=== PATIENT | female | born 1965 | race Caucasian/White ===

== ENCOUNTER 2016-09-06 10:57 | Outpatient (CLI) | payer OTHER ==
[2016-09-06 12:03] LABS: ALT (SGPT) 25 U/L (0-55); AST (SGOT) 25 U/L (5-34); Albumin 4.4 g/dL (3.5-5.0); Alkaline Phosphatase 59 U/L (40-150); Anion Gap 11 mmol/L (10-20); BUN (Urea Nitrogen) 13 mg/dL (9.8-20.1); Bilirubin, Total 0.6 mg/dL (0.2-1.2); Calc. Creatinine Clearance 0 mL/min (70-130); Calcium 9.6 mg/dL (7.8-10.44); Carbon Dioxide 28 mmol/L (22-29); Cardiac Risk 3.7 (Less than 4.5); Chloride 105 mmol/L (98-107); Cholesterol 224 mg/dL (< 200 Desired); Estimated GFR-MDRD 76; Globulin 2.6 g/dL (2.4-3.5); Glucose 85 mg/dL (70-105); HDL Cholesterol 61 mg/dL (>60 Neg Risk); LDL Cholesterol, Calculated 131 mg/dL; Potassium 4.2 mmol/L (3.5-5.1); Sodium 140 mmol/L (136-145); Triglycerides 161 mg/dL (Less than 150)
[2016-09-06 12:15] LABS: #Basophils 0.1 thou/uL (0.0-0.2); #Eosinphils 0.6 thou/uL (0.0-0.7); #Lymphocytes 2.4 thou/uL (1.20-3.40); #Monocytes 0.6 thou/uL (0.11-0.59); #Neutrophils 6.7 thou/uL (1.40-6.50); %Basophils 0.8 % (0.0-1.0); %Eosinophils 5.7 % (0.0-10.0); %Lymphocytes 22.8 % (21.0-51.0); %Monocytes 6.1 % (0.0-10.0); %Neutrophils 64.6 % (42.0-75.0); Hemoglobin 16.1 g/dL (12.0-16.0); Mean Corpuscular HGB CONC 35.1 g/dL (32.0-36.0); Mean Corpuscular Volume 96.8 fl (81.0-99.0); Mean Platelet Volume 7.1 fL (7.4-10.4); Platelet Count 238 thou/uL (130-400); RBC Distribution Width 11.8 % (11.5-14.5); Red Blood Cell (RBC) Count 4.75 mill/uL (4.20-5.40); White Blood Cell (WBC) Count 10.4 thou/uL (4.8-10.8)
== END 2016-09-06 10:58 ==
LOC: HPCALD 10:57
PROVIDERS: ATTEND Family Medicine
DX: I10 Essential (primary) hypertension (principal); E78.5 Hyperlipidemia, unspecified
CPT/HCPCS: 36415; 80053; 80061; 85025

== ENCOUNTER 2018-08-28 10:13 | Outpatient (CLI) | payer OTHER ==
--- NOTE | 2018-08-28 12:47 | RAD ---
RIGHT SHOULDER THREE VIEWS: INDICATIONS: Right shoulder pain. COMPARISON: None. FINDINGS: There is moderate AC joint osteoarthrosis. There is degenerative subchondral cyst-like abnormality i nvolving the proximal humeral head. No acute fracture is evident. The visualized right lung is emilee r. IMPRESSION: 1. No acute osseous abnormality. 2. Moderate osteoarthrosis of the right acromioclavicular joint. POS: [facility]
--- NOTE | 2018-08-28 12:52 | RAD ---
RIGHT HAND 3 VIEWS: INDICATION: Right hand pain. COMPARISON: None. FINDINGS: No acute fracture or subluxation is evident. Soft tissues are normal-appearing. No radiopaque forei gn body is noted. IMPRESSION: No acute osseous abnormality. POS: [facility]
== END 2018-08-28 10:14 | disposition home or self-care (01) ==
LOC: BURRAD 10:13
PROVIDERS: ATTEND Family Medicine
DX: M25.511 Pain in right shoulder (principal); M79.641 Pain in right hand; M19.011 Primary osteoarthritis, right shoulder

== ENCOUNTER 2020-10-13 06:50 | Emergency (ER) | payer OTHER ==
[2020-10-13] MEDS ORDERED: Ketorolac Tromethamine 60 MG/2 ML VIAL ONE (07:14)
== END 2020-10-13 07:26 | disposition home or self-care (01) ==
LOC: BURERS 06:50
DX: S39.011A Strain of muscle, fascia and tendon of abdomen, initial encounter (principal); J45.909 Unspecified asthma, uncomplicated; F17.210 Nicotine dependence, cigarettes, uncomplicated; Z71.6 Tobacco abuse counseling; X50.1XXA Overexertion from prolonged static or awkward postures, initial encounter; Y99.0 Civilian activity done for income or pay
CPT/HCPCS: 96372; 99406; J1885

== ENCOUNTER 2022-02-28 17:20 | Emergency (ER) | payer BC, OTHER ==
[2022-02-28] MEDS ORDERED: methylPREDNISolone Sod Succ/PF 125 MG/2 ML VIAL ONE (17:41)
== END 2022-02-28 18:18 | disposition home or self-care (01) ==
LOC: BURERS 17:20
DX: J44.1 Chronic obstructive pulmonary disease with (acute) exacerbation (principal); I10 Essential (primary) hypertension; E78.00 Pure hypercholesterolemia, unspecified; F17.210 Nicotine dependence, cigarettes, uncomplicated
CPT/HCPCS: 71045; 93005; 96372; J2930; J7620

== ENCOUNTER 2023-04-20 05:17 | Emergency (ER) | payer OTHER, BC | END 2023-04-20 06:05 | disposition home or self-care (01) | LOC: BURERS 05:17 | DX: M25.511 Pain in right shoulder (principal); F17.210 Nicotine dependence, cigarettes, uncomplicated; I10 Essential (primary) hypertension; J44.9 Chronic obstructive pulmonary disease, unspecified; Z79.899 Other long term (current) drug therapy ==

== ENCOUNTER 2023-06-17 17:05 | Emergency (ER) | payer BC ==
[2023-06-17 17:40] LABS: White Blood Cell (WBC) Count 12.6 10x3/uL (4.8-10.8)
[2023-06-17 17:41] LABS: Band 1 % (5-11); Eosinophils 1 % (0-10); Hematocrit 42.2 % (36.0-47.0); Hemoglobin 14.7 g/dL (12.0-16.0); Lymphocytes 21 % (21-51); MDiff Complete? YES; Manual Diff?? YES; Mean Corpuscular HGB CONC 34.9 g/dL (32.0-36.0); Mean Corpuscular Hemoglobin 32.8 pg (27.0-31.0); Mean Platelet Volume 7.8 fL (7.4-10.4); Monocytes 6 % (0-10); Neutrophil 71 % (42-75); Platelet Count 263 10x3/uL (130-400); RBC Distribution Width 11.9 % (11.5-14.5); Red Blood Cell (RBC) Count 4.49 mill/uL (4.20-5.40)
[2023-06-17 17:45] LABS: Troponin I Less than 0.010 ng/mL (< 0.028)
[2023-06-17 17:46] LABS: ALT (SGPT) 26 U/L (8-55); AST (SGOT) 25 U/L (5-34); Albumin 4.9 g/dL (3.5-5.0); Alkaline Phosphatase 63 U/L (40-110); Anion Gap 17 mmol/L (10-20); BUN (Urea Nitrogen) 15 mg/dL (9.8-20.1); Bilirubin, Total 0.9 mg/dL (0.2-1.2); Calc. Creatinine Clearance 0 mL/min (70-130); Calcium 9.6 mg/dL (7.8-10.44); Carbon Dioxide 21 mmol/L (22-29); Chloride 104 mmol/L (98-107); Estimated GFR 74; Globulin 2.5 g/dL (2.4-3.5); Glucose 102 mg/dL (70-105); Potassium 4.4 mmol/L (3.5-5.1); Protein, Total 7.4 g/dL (6.0-8.3)
[2023-06-17] MEDS ORDERED: methylPREDNISolone Sod Succ/PF 125 MG/2 ML VIAL ONE (17:47)
[2023-06-17] MEDS ORDERED: Ipratropium/Albuterol 3 ML NEB ONE ×2 (17:47→19:32)
[2023-06-17] MEDS ORDERED: Magnesium 2 GM/50 ML BAG (IN WATER) ONE (17:48)
[2023-06-17 17:50] LABS: Sodium 138 mmol/L (136-145)
== END 2023-06-17 20:00 | disposition home or self-care (01) ==
LOC: BURERS 17:05
DX: J44.1 Chronic obstructive pulmonary disease with (acute) exacerbation (principal); I10 Essential (primary) hypertension; F17.210 Nicotine dependence, cigarettes, uncomplicated
CPT/HCPCS: 36415; 71045; 80053; 84484; 85025; 93005; 94760; 96374; 96375; J2930; J3475; J7620

== ENCOUNTER 2023-07-23 11:48 | Emergency (ER) | payer BC ==
[2023-07-23] MEDS ORDERED: methylPREDNISolone Sod Succ/PF 125 MG/2 ML VIAL ONE (12:03)
[2023-07-23] MEDS ORDERED: Ipratropium/Albuterol 3 ML NEB ONE (12:03)
[2023-07-23 12:29] LABS: #Basophils 0.1 thou/uL (0.0-0.2); #Eosinphils 0.6 thou/uL (0.0-0.7); #Lymphocytes 1.9 thou/uL (1.20-3.40); #Monocytes 0.9 thou/uL (0.11-0.59); #Neutrophils 7.9 thou/uL (1.40-6.50); %Basophils 0.9 % (0.0-1.0); %Eosinophils 5.5 % (0.0-10.0); %Lymphocytes 16.7 % (21.0-51.0); %Monocytes 7.5 % (0.0-10.0); %Neutrophils 69.3 % (42.0-75.0); Hemoglobin 15.6 g/dL (12.0-16.0); Mean Corpuscular HGB CONC 36.2 g/dL (32.0-36.0); Mean Corpuscular Hemoglobin 33.4 pg (27.0-31.0); Mean Corpuscular Volume 92.1 fl (78.0-98.0); Mean Platelet Volume 7.6 fL (7.4-10.4); Platelet Count 284 10x3/uL (130-400); RBC Distribution Width 11.5 % (11.5-14.5); Red Blood Cell (RBC) Count 4.67 mill/uL (4.20-5.40); White Blood Cell (WBC) Count 11.3 10x3/uL (4.8-10.8)
[2023-07-23 12:34] LABS: ALT (SGPT) 23 U/L (8-55); AST (SGOT) 26 U/L (5-34); Albumin 4.8 g/dL (3.5-5.0); Alkaline Phosphatase 64 U/L (40-110); Anion Gap 19 mmol/L (10-20); BUN (Urea Nitrogen) 14 mg/dL (9.8-20.1); Calc. Creatinine Clearance 0 mL/min (70-130); Calcium 10.1 mg/dL (7.8-10.44); Carbon Dioxide 22 mmol/L (22-29); Chloride 101 mmol/L (98-107); Estimated GFR 67; Globulin 2.8 g/dL (2.4-3.5); Glucose 112 mg/dL (70-105); Magnesium 1.9 mg/dL (1.6-2.6); Potassium 3.8 mmol/L (3.5-5.1); Protein, Total 7.6 g/dL (6.0-8.3); Sodium 138 mmol/L (136-145)
== END 2023-07-23 13:58 | disposition home or self-care (01) ==
LOC: BURERS 11:48
DX: J44.1 Chronic obstructive pulmonary disease with (acute) exacerbation (principal); I10 Essential (primary) hypertension; F17.210 Nicotine dependence, cigarettes, uncomplicated
CPT/HCPCS: 71045; 80053; 83735; 85025; 93005; 94640; 94760; 96374; J2930; J7620

== ENCOUNTER 2025-01-26 15:16 | Emergency (ER) | payer OTHER | END 2025-01-26 17:00 | disposition home or self-care (01) | LOC: BURERS 15:16 | DX: S83.92XA Sprain of unspecified site of left knee, initial encounter (principal); I10 Essential (primary) hypertension; F17.210 Nicotine dependence, cigarettes, uncomplicated; J44.9 Chronic obstructive pulmonary disease, unspecified; E78.00 Pure hypercholesterolemia, unspecified; X50.0XXA Overexertion from strenuous movement or load, initial encounter; Y93.89 Activity, other specified; Y92.239 Unspecified place in hospital as the place of occurrence of the external cause | CPT/HCPCS: 99283 ==